=== PATIENT | male | born 1995 | race Caucasian/White ===

== ENCOUNTER 2018-06-19 09:56 | Emergency (ER) | payer BC ==
[2018-06-19 10:21] VITALS: BP 133/86
--- NOTE | 2018-06-19 10:28 | UC ---
UC General HPI - HPI Summary HPI Summary: HEAD COLD FOR A FEW DAYS. THIS AM BOTH EYES RED PLUS HAD A LITTLE DRAINAGE THIS AM. THINKS IT IS PINK EYE. NO CONTACT USE, EYE PAIN OR VISUAL DISTURBANCE. - History of Current Complaint Chief Complaint: UCEye Stated Complaint: BILATERAL EYE CONCERN Time Seen by Provider: 06/19/18 10:14 Hx Obtained From: Patient Onset/Duration: Gradual Onset Timing: Constant Pain Intensity: 0 Aggravating: NOTHING Associated Signs & Symptoms: Negative: Fever, Headache - Allergy/Home Medications Allergies/Adverse Reactions: Allergies Allergy/AdvReac Type Severity Reaction Status Date / Time No Known Allergies Allergy Verified 06/19/18 10:19 PMH/Surg Hx/FS Hx/Imm Hx Endocrine History: Diabetes, Thyroid Disease - Surgical History Surgical History: None - Family History Known Family History: Positive: None - Social History Occupation: Student Lives: With Family Alcohol Use: Weekly Substance Use Type: None Smoking Status (MU): Never Smoked Tobacco - Immunization History Most Recent Influenza Vaccination: [id number] Review of Systems All Other Systems Reviewed And Are Negative: Yes Constitutional: Positive: Negative Skin: Positive: Negative Eyes: Positive: Negative ENT: Positive: Negative Respiratory: Positive: Negative Cardiovascular: Positive: Negative Gastrointestinal: Positive: Negative Genitourinary: Positive: Negative Motor: Positive: Negative Neurovascular: Positive: Negative Musculoskeletal: Positive: Negative Neurological: Positive: Negative Psychological: Positive: Negative Physical Exam Triage Information Reviewed: Yes Appearance: Well-Appearing Vital Signs: Initial Vital Signs Temp 98.4 F 06/19/18 10:18 Pulse 84 06/19/18 10:18 Resp 16 06/19/18 10:18 BP 133/86 06/19/18 10:18 Pulse Ox 98 06/19/18 10:18 Vital Signs Reviewed: Yes Eye Exam: Normal Eyes: Positive: Other: - NO PERIORBITAL EDEMA OR ERYTHEMA. CONJUNCTIVA INJECTED X2. PERRL, EOMI. SLIGHT CRUSTING ON LASHES. NO AURICULAR ADENOPATHY. ENT: Positive: Pharynx normal, TMs normal. Negative: Nasal drainage Neck: Positive: Supple, Nontender, No Lymphadenopathy Respiratory: Positive: Lungs clear, Normal breath sounds Cardiovascular: Positive: RRR, No Murmur Abdomen Description: Positive: Nontender, No Organomegaly, Soft Bowel Sounds: Positive: Present Musculoskeletal: Positive: ROM Intact Neurological: Positive: Alert Psychological: Positive: Age Appropriate Behavior Skin Exam: Normal Course/Dx - Course Course Of Treatment: NO CONCER FOR CORNEAL ULCERS OR HERPETIC LESIONS - Differential Dx - Multi-Symptom Provider Diagnoses: CONJUNCTIVITIS Discharge - Sign-Out/Discharge Documenting (check all that apply): Patient Departure All imaging exams completed and their final reports reviewed: No Studies - Discharge Plan Condition: Stable Disposition: HOME Prescriptions: Sulfacetamide Sodium [Bleph-10] 2 drop BOTH EYES Q6HR 7 Days #1 btl Patient Education Materials: Conjunctivitis (ED) Referrals: Shan Dc DO [Primary Care Provider] - Additional Instructions: RECHECK IN -7 DAYS IF NOT BETTER OR SOONER IF WORSE. - Billing Disposition and Condition Condition: STABLE Disposition: Home
== END 2018-06-19 10:31 | disposition home or self-care (01) ==
LOC: UCCORT 09:56
DX: H10.9 Unspecified conjunctivitis (principal); E11.9 Type 2 diabetes mellitus without complications
CPT/HCPCS: 99212; G0463

== ENCOUNTER 2018-10-03 21:24 | Emergency (ER) | payer BC ==
[2018-10-03 21:35] VITALS: BP 142/73
[2018-10-03] MEDS ORDERED: Tobramycin 0.3% OPHTH.SOL* 5 ML BOT (regular eye drops) BOTH EYES ONE (21:44)
--- NOTE | 2018-10-03 21:45 | UC ---
Eye Complaint HPI - HPI Summary HPI Summary: 23-year-old male comes in with a chief complaint of bilateral eye redness and irritation. Started yesterday. He has had some runny nose. Rhinorrhea is clear. No sore throat. Similar episode occurred last week when he visited a work site. The symptoms lasted for several days than got better. The right eye he started again after visiting the same work site yesterday. No fevers or chills. No eye pain no change in vision. Patient does not have contacts. - History of Current Complaint Chief Complaint: UCEye Stated Complaint: RED BURNING EYES Time Seen by Provider: 10/03/18 21:40 Pain Intensity: 0 - Allergies/Home Medications Allergies/Adverse Reactions: Allergies Allergy/AdvReac Type Severity Reaction Status Date / Time No Known Allergies Allergy Verified 10/03/18 21:32 Home Medications: Home Medications Insulin LISPRO* [HumaLOG*] 0 unit DAILY 10/03/18 [History Confirmed 10/03/18] PMH/Surg Hx/FS Hx/Imm Hx Previously Healthy: Yes Endocrine History: Diabetes, Hypothyroidism - Surgical History Surgical History: None - Family History Known Family History: Positive: None - Social History Alcohol Use: Weekly Substance Use Type: None Smoking Status (MU): Never Smoked Tobacco - Immunization History Most Recent Influenza Vaccination: [id number] Review of Systems All Other Systems Reviewed And Are Negative: Yes Constitutional: Positive: Negative Skin: Positive: Negative Eyes: Positive: Eye Redness. Negative: Blurred Vision, Photophobia ENT: Positive: Nasal Discharge Respiratory: Positive: Negative Cardiovascular: Positive: Negative Gastrointestinal: Positive: Negative Motor: Positive: Negative Neurovascular: Positive: Negative Musculoskeletal: Positive: Negative Neurological: Positive: Negative Psychological: Positive: Negative Is Patient Immunocompromised?: No Physical Exam Triage Information Reviewed: Yes Appearance: Well-Appearing, No Pain Distress, Well-Nourished Vital Signs: Initial Vital Signs Temp 97.6 F 10/03/18 21:33 Pulse 71 10/03/18 21:33 Resp 16 10/03/18 21:33 BP 142/73 10/03/18 21:33 Pulse Ox 100 10/03/18 21:33 Vital Signs Reviewed: Yes Eyes: Positive: Conjunctiva Inflamed, Other: - PERRLA/EOMI ENT: Positive: Pharynx normal, Nasal congestion, TMs normal Neck exam: Normal Neck: Positive: Supple Respiratory Exam: Normal Respiratory: Positive: Lungs clear, Normal breath sounds, No respiratory distress Cardiovascular: Positive: RRR Musculoskeletal Exam: Normal Musculoskeletal: Positive: Strength Intact, ROM Intact Neurological Exam: Normal Neurological: Positive: Alert, Muscle Tone Normal Psychological Exam: Normal Psychological: Positive: Normal Response To Family, Age Appropriate Behavior Skin Exam: Normal Eye Complaint Course/Dx - Differential Dx/Diagnosis Provider Diagnosis: Conjunctivitis Discharge - Sign-Out/Discharge Documenting (check all that apply): Patient Departure All imaging exams completed and their final reports reviewed: No Studies - Discharge Plan Condition: Stable Disposition: HOME Prescriptions: Ketotifen Fumarate [Zaditor] 1 drop OP BID #1 bottle Patient Education Materials: Conjunctivitis (ED) Referrals: Shan Dc DO [Primary Care Provider] - Additional Instructions: FOLLOW UP WITH YOUR DOCTOR IF NOT COMPLETELY IMPROVED. GET RECHECKED FOR ANY WORSENING OF YOUR CONDITION OR QUESTIONS OR CONCERNS. - Billing Disposition and Condition Condition: STABLE Disposition: Home
== END 2018-10-03 21:51 | disposition home or self-care (01) ==
LOC: UCCORT 21:24
DX: H10.9 Unspecified conjunctivitis (principal); R09.89 Other specified symptoms and signs involving the circulatory and respiratory systems; E11.9 Type 2 diabetes mellitus without complications; Z79.4 Long term (current) use of insulin
CPT/HCPCS: 99212; A9270-GY; G0463